=== PATIENT | male | born 1960 | race Caucasian/White ===

== ENCOUNTER 2018-10-21 17:10 | Emergency (ER) | payer BC ==
--- NOTE | 2018-10-21 18:02 | EDM.PDOC ---
<Constance Rolon - Last Filed: 10/21/18 18:07> ED HPI GENERAL MEDICAL PROBLEM - General Chief Complaint: Lower Extremity Injury/Pain Stated Complaint: L LEG POSS BLOOD CLOT Time Seen by Provider: 10/21/18 17:34 Source of Information: Reports: Patient, RN Notes Reviewed History Limitations: Reports: No Limitations - History of Present Illness INITIAL COMMENTS - FREE TEXT/NARRATIVE: Farhan is a 58 year old male who presents with left lower extremity swelling, erythema and pain for the last 5 days. Patient states he injured his calf muscle about nine days ago and had some bruising to the posterior calf. He then left for vacation to [place], [place] via airplane 7 days ago and returned to [place] last evening. He states that he experienced tightness and discomfort to his posterior lower extremity and then developed erythema to the anterior left lower extremity and pitting edema that was much worse than his baseline edema. Patient states he has been taking 800mg ibuprofen twice a day for the discomfort. He was walking substantially on his vacation to [place], and noticed the swelling would worsen through the day, and would improve with elevation and ice in the evening. He was seen at the walk in clinic and was told he would need US for DVT evaluation. Patient denies any SOB. Treatments OSD CLERK: Reports: NSAIDS Left Leg Pain Score (Numeric/FACES): 0 - Related Data Allergies Allergy/AdvReac Type Severity Reaction Status Date / Time No Known Allergies Allergy Verified 10/21/18 17:23 Home Meds: Home Meds Ibuprofen [Ibu] 800 mg PO ASDIRECTED PRN 10/21/18 [History] amLODIPine [Norvasc] 2.5 mg PO DAILY 10/21/18 [History] cephALEXin [Cephalexin] 500 mg PO TID #21 capsule 10/21/18 [Rx] guaiFENesin [Mucinex] 1,200 mg PO BID 10/21/18 [History] Past Medical History HEENT History: Reports: Impaired Vision Cardiovascular History: Reports: Hypertension Other Cardiovascular History: Had a calcium study and stress test about 1 year ago and were normal Musculoskeletal History: Reports: Back Pain, Chronic - Infectious Disease History Infectious Disease History: Reports: Chicken Pox, Measles - Past Surgical History HEENT Surgical History: Reports: Oral Surgery, Tonsillectomy Social & Family History - Family History Family Medical History: Noncontributory Cardiac: Reports: CAD Endocrine/Metabolic: Reports: Diabetes, type II Oncologic: Reports: Prostate - Tobacco Use Smoking Status *Q: Never Smoker - Caffeine Use Caffeine Use: Reports: Coffee - Recreational Drug Use Recreational Drug Use: No Review of Systems - Review of Systems Review Of Systems: See Below Constitutional: Reports: No Symptoms Eyes: Reports: No Symptoms Ears: Reports: No Symptoms Nose: Reports: No Symptoms Mouth/Throat: Reports: No Symptoms Respiratory: Reports: No Symptoms. Denies: Shortness of Breath, Pleuritic Chest Pain, Cough Cardiovascular: Reports: Edema (left lower extremity). Denies: Chest Pain, Palpitations GI/Abdominal: Reports: No Symptoms Genitourinary: Reports: No Symptoms Skin: Reports: Bruising (posterior left lower extremity), Erythema (anterior left lower extremity) Neurological: Reports: No Symptoms Psychiatric: Reports: No Symptoms ED EXAM, GENERAL - Physical Exam Exam: See Below Exam Limited By: No Limitations General Appearance: Alert, WD/WN, No Apparent Distress Eye Exam: Bilateral Eye: EOMI, PERRL Head: Atraumatic, Normocephalic Respiratory/Chest: No Respiratory Distress Cardiovascular: Normal Peripheral Pulses Peripheral Pulses: 0: Posterior Tibial (L) (unable to appreciate due to edema), 3+: Popliteal (L), Popliteal (R), Dorsalis Pedis (L), Dorsalis Pedis (R) Extremities: Normal Capillary Refill, Increased Warmth (anterior L LE), Redness (anterior L LE), Other (edema to the level of the knee, pitting +2) Neurological: Alert, Oriented, Normal Cognition Psychiatric: Normal Affect, Normal Mood Course - Vital Signs Last Recorded V/S: Last Vital Signs Temp 97.6 F 10/21/18 17:28 Pulse 63 10/21/18 20:02 Resp 16 10/21/18 20:02 BP 140/74 10/21/18 20:02 Pulse Ox 98 10/21/18 20:02 - Orders/Labs/Meds Labs: Laboratory Tests 10/21/18 10/21/18 Range/Units 18:15 18:15 WBC 6.95 (4.23-9.07) K/mm3 RBC 4.49 L (4.63-6.08) M/mm3 Hgb 13.6 L (13.7-17.5) gm/L Hct 41.1 (40.1-51.0) % MCV 91.5 (79.0-92.2) fl MCH 30.3 (25.7-32.2) pg MCHC 33.1 (32.2-35.5) g/dl RDW Std Deviation 47.0 H (35.1-43.9) fL Plt Count 228 (163-337) K/mm3 MPV 10.1 (9.4-12.3) fl Neutrophils % (Manual) 68 H (40-60) % Band Neutrophils % 0 (0-10) % Lymphocytes % (Manual) 22 (20-40) % Atypical Lymphs % 0 % Monocytes % (Manual) 7 (2-10) % Eosinophils % (Manual) 2 (0.8-7.0) % Basophils % (Manual) 1 (0.2-1.2) Platelet Estimate Adequate Plt Morphology Comment Normal RBC Morph Comment Normal C-Reactive Protein 1.1 H* (<1.0) mg/dL Departure - Departure Disposition: Home, Self-Care 01 Clinical Impression: Cellulitis, Venous stasis of lower extremity, Edema - Discharge Information Prescriptions: cephALEXin [Cephalexin] 500 mg PO TID #21 capsule Instructions: Cellulitis, Adult Referrals: Rich Louise Jr, MD [Primary Care Provider] - Forms: ED Department Discharge Additional Instructions: Take the cephalexin as prescribed. 1 cap PO tid x 7 days. Elevate the leg as much as you able to. Elevate above the level of the heart as much as possible. Recommend compression stockings. The full leg ones are best. Follow-up with PCP in 7-10 days for a recheck of the swelling and erythema. Please return to the ER should your symptoms change or worsen. <Any Harper - Last Filed: 10/21/18 23:20> ED HPI GENERAL MEDICAL PROBLEM - History of Present Illness INITIAL COMMENTS - FREE TEXT/NARRATIVE: I have seen the patient and agree with the HPI as documented by JENNY Sol. Patient denies any chest pain or shortness of breath. Reports pain to the left leg only with palpation. Review of Systems - Review of Systems Review Of Systems: See Below Constitutional: Denies: Chills, Fever ED EXAM, GENERAL - Physical Exam Respiratory/Chest: No Respiratory Distress, Lungs Clear, Normal Breath Sounds Cardiovascular: Normal Peripheral Pulses, Regular Rate, Rhythm, No Murmur Extremities: No: Bronson's Sign Skin Exam: Warm, Dry, Normal Color, Erythema (Left lower leg anterior with associated increased warmth) Course - Radiology Interpretation Free Text/Narrative:: Left lower extremity deep venous ultrasound: Duplex and color flow imaging was obtained of the left common femoral, proximal greater saphenous, superficial femoral, popliteal, posterior tibial and peroneal veins. Right common femoral vein was also evaluated. Findings: Normal phasic flow, augmentation and compression is seen. Subcutaneous edema is noted within the lower extremity. Impression: 1. Subcutaneous edema with left lower extremity. 2. No evidence of deep venous thrombosis within left lower extremity or within the right common femoral vein. - Re-Assessments/Exams Free Text/Narrative Re-Assessment/Exam: 10/21/18 19:49 I have seen the patient and agree with the HPI, ROS and PE as documented by JENNY Sol. No sign of DVT. Suspect the edema is from his previous vein stripping and increased walking as of late. Concern erythema and increased warmth is early cellulitis. Will treat with cephalexin. No history of MRSA or diabetes. Discharge instructions as documented. Departure - Departure Time of Disposition: 19:49 Condition: Fair - Discharge Information *PRESCRIPTION DRUG MONITORING PROGRAM REVIEWED*: No *COPY OF PRESCRIPTION DRUG MONITORING REPORT IN PATIENT GALO: No
--- NOTE | 2018-10-21 19:15 | US ---
Left lower extremity deep venous ultrasound: Duplex and color flow imaging was obtained of the left common femoral, proximal greater saphenous, superficial femoral, popliteal, posterior tibial and peroneal veins. Right common femoral vein was also evaluated. Findings: Normal phasic flow, augmentation and compression is seen. Subcutaneous edema is noted within the lower extremity. Impression: 1. Subcutaneous edema with left lower extremity. 2. No evidence of deep venous thrombosis within left lower extremity or within the right common femoral vein. Diagnostic code #2
== END 2018-10-21 20:02 | disposition home or self-care (01) ==
LOC: JD.ED 17:10
DX: I87.8 Other specified disorders of veins (principal); I10 Essential (primary) hypertension; L03.116 Cellulitis of left lower limb; Z79.899 Other long term (current) drug therapy; R60.0 Localized edema
CPT/HCPCS: 36415; 85007; 85027; 86140; 93971-26-LT; 93971-LT; 99283; 99284-25

== ENCOUNTER 2019-06-29 08:54 | Day surgery (SDC) | payer BC ==
[~2019-06-29 08:54] MED LIST: Lactated Ringers 1,000 ML IV SCH; Lidocaine 1%/Sod Bicarbonate in NS 8.4% 1 ML Syringe IDERM PRN; Sodium Chloride 0.9% 10 ML Syringe FLUSH PRN
[2019-06-29] MEDS ORDERED: Lidocaine 1% 30 ML SDV ONE (09:04)
[2019-06-29] MEDS ORDERED: Propofol 200 MG/20 ML SDV ONE (09:04)
[2019-06-29] MEDS ORDERED: Midazolam 1 MG/ML 2 ML SDV ONE (09:05)
[2019-06-29] MEDS ORDERED: fentaNYL 250 MCG/5 ML SDV ONE (09:06)
[2019-06-29] MEDS ORDERED: Rocuronium 50 MG/5 ML Vial ONE (09:06)
[2019-06-29] MEDS ORDERED: Lidocaine 1% 4 ML ONE (09:07)
[2019-06-29] MEDS ORDERED: Ondansetron 4 MG/2 ML SDV ONE (09:08)
[2019-06-29] MEDS ORDERED: Dexamethasone 4 MG/ML SDV ONE (09:08)
--- NOTE | 2019-06-29 09:18 | PCM.PREANE ---
Preanesthetic Assessment - Procedure Proposed Procedure: laparascopic right inguinal hernia repair with mesh - Anesthesia/Transfusion/Family Hx Anesthesia History: Prior Anesthesia Without Reaction Family History of Anesthesia Reaction: No Transfusion History: No Prior Transfusion(s) - Review of Systems General: No Symptoms Pulmonary: Cough (daily due to mucous buildup) Cardiovascular: No Symptoms Gastrointestinal: No Symptoms Neurological: No Symptoms Other: Reports: None - Physical Assessment NPO Status Date: 06/28/19 NPO Status Time: 23:59 Vital Signs: 99.5 16 92% 67 136/80 Height: 5 ft 10 in Weight: 128 kg ASA Class: 2 Mental Status: Alert & Oriented x3 Airway Class: Mallampati = 2 Dentition: Reports: Normal Dentition Thyro-Mental Finger Breadths: 3 Mouth Opening Finger Breadths: 3 ROM/Head Extension: Full Lungs: Clear to Auscultation, Normal Respiratory Effort Cardiovascular: Regular Rate, Regular Rhythm - Allergies Allergies/Adverse Reactions: Allergies Allergy/AdvReac Type Severity Reaction Status Date / Time No Known Allergies Allergy Verified 06/28/19 17:21 - Blood Blood Available: Yes - Acknowledgements Anesthesia Type Planned: General Anesthesia Pt an Appropriate Candidate for the Planned Anesthesia: Yes Alternatives and Risks of Anesthesia Discussed w Pt/Guardian: Yes Pt/Guardian Understands and Agrees with Anesthesia Plan: Yes PreAnesthesia Questionnaire HEENT History: Reports: Allergic Rhinitis, Impaired Vision Cardiovascular History: Reports: Hypertension Other Cardiovascular History: Had a calcium study and stress test about 1 year ago and were normal, chest pain, edema Respiratory History: Reports: None Gastrointestinal History: Reports: Other (See Below) Other Gastrointestinal History: reflux- seldom Genitourinary History: Reports: None UNIVERSITY MANAGER History: Reports: None Musculoskeletal History: Reports: Back Pain, Chronic Neurological History: Reports: None Psychiatric History: Reports: None Endocrine/Metabolic History: Reports: Obesity/BMI 30+ Hematologic History: Reports: None Immunologic History: Reports: None Oncologic (Cancer) History: Reports: None Dermatologic History: Reports: Eczema, Other (See Below) Other Dermatologic History: contact dermatitis - Infectious Disease History Infectious Disease History: Reports: Chicken Pox, Measles - Past Surgical History Head Surgeries/Procedures: Reports: None HEENT Surgical History: Reports: Naso-Sinus Surgery, Oral Surgery, Tonsillectomy Cardiovascular Surgical History: Reports: None Respiratory Surgical History: Reports: None GI Surgical History: Reports: Colonoscopy Female Surgical History: Reports: None Male Surgical History: Reports: None Other Male Surgeries/Procedures: veins stripped left leg- 9 years ago Endocrine Surgical History: Reports: None Neurological Surgical History: Reports: None Musculoskeletal Surgical History: Reports: Other (See Below) Other Musculoskeletal Surgeries/Procedures:: thumb amputation Oncologic Surgical History: Reports: None - SUBSTANCE USE Smoking Status *Q: Never Smoker Tobacco Use Within Last Twelve Months: Smokeless Tobacco (used 12-15 years but quit years ago) Second Hand Smoke Exposure: No Days Per Week of Alcohol Use: 2 Number of Drinks Per Day: 2 Total Drinks Per Week: 4 Recreational Drug Use History: No - HOME MEDS Home Medications: Home Meds Calcium Carb/Magnesium Cmb #10 [David-Mag] 6 tab PO DAILY 06/28/19 [History] Cetirizine HCl [Zyrtec] 10 mg PO DAILY 06/28/19 [History] Ibuprofen 200 - 600 mg PO Q4H PRN 06/28/19 [History] Mometasone Furoate [Nasonex] 1 dose BRIAN BID PRN 06/28/19 [History] Multivitamin [Daily Multiple Vitamin] 1 tab PO DAILY 06/28/19 [History] Tadalafil 20 mg PO ASDIRECTED PRN 06/28/19 [History] Triamcinolone Acetonide [Triamcinolone Acetonide 0.1% Crm] 1 dose TOP BID [History] amLODIPine Besylate [Amlodipine Besylate] 5 mg PO DAILY 06/28/19 [History] guaiFENesin [Mucinex] 600 mg PO BID PRN 06/28/19 [History] - CURRENT (IN HOUSE) MEDS Current Meds: Current Medications Lactated Ringer's (Ringers, Lactated) 1,000 mls @ 125 mls/hr IV ASDIRECTED KEARA Stop: 06/29/19 23:00 Influenza Virus Vaccine (Fluzone Quad Syringe) 60 mcg IM .ONCE ONE Stop: 06/29/19 10:01 Lidocaine/Sodium Bicarbonate (Buffered Lidocaine 1% In Ns 8.4%) 0.25 ml IDERM ONETIME PRN PRN Reason: Prior to IV Start Stop: 06/29/19 18:00 Sodium Chloride (Saline Flush) 10 ml FLUSH ASDIRECTED PRN PRN Reason: Keep Vein Open Stop: 10/07/19 18:00 Discontinued Medications Dexamethasone (Dexamethasone) Confirm Administered Dose 4 mg .ROUTE .STK-MED ONE Stop: 06/29/19 09:09 Fentanyl (Sublimaze) Confirm Administered Dose 250 mcg .ROUTE .STK-MED ONE Stop: 06/29/19 09:07 Lidocaine HCl (Xylocaine-Mpf 1%) Confirm Administered Dose 4 mls @ as directed .ROUTE .STK-MED ONE Stop: 06/29/19 09:08 Influenza Virus Vaccine (Pharmacy To Dose - Influenza Vaccine) 1 each IM ONETIME KEARA Lidocaine HCl (Xylocaine-Mpf 1%) Confirm Administered Dose 30 ml .ROUTE .STK- MED ONE Stop: 06/29/19 09:05 Midazolam HCl (Versed 1 Mg/Ml) Confirm Administered Dose 2 mg .ROUTE .STK-MED ONE Stop: 06/29/19 09:06 Ondansetron HCl (Zofran) Confirm Administered Dose 4 mg .ROUTE .STK-MED ONE Stop: 06/29/19 09:09 Propofol (Diprivan 20 Ml) Confirm Administered Dose 200 mg .ROUTE .STK-MED ONE Stop: 06/29/19 09:05 Rocuronium Winn (Zemuron) Confirm Administered Dose 50 mg .ROUTE .STK-MED ONE Stop: 06/29/19 09:07
[2019-06-29] MEDS ORDERED: FLU Vacc QS2019-20(6MOS+)/PF 60 MCG/0.5 ML SYRINGE IM ONE ×2 (10:00→14:46)
[2019-06-29] MEDS ORDERED: Ondansetron 4 MG/2 ML SDV IVPUSH PRN (14:16)
[2019-06-29] MEDS ORDERED: diphenhydrAMINE 50 MG/ML SDV IVPUSH PRN (14:16)
[2019-06-29] MEDS ORDERED: fentaNYL 100 MCG/2 ML SDV IVPUSH PRN (14:16)
--- NOTE | 2019-06-29 14:21 | PCM.POSTAN ---
POST ANESTHESIA ASSESSMENT - MENTAL STATUS Mental Status: Alert - VITAL SIGNS Vital Signs: Last Vital Signs bp 145/85 sats 92 2 LNC pulse 95 rr 15 temp 98.6 Temp 37.5 C 06/29/19 09:00 Pulse 67 06/29/19 09:00 Resp 16 06/29/19 09:00 BP 136/80 06/29/19 09:00 Pulse Ox 92 L 06/29/19 09:00 - RESPIRATORY Respiratory Status: Respiratory Rate WNL, Airway Patent, O2 Saturation Stable, Supplemental Oxygen - CARDIOVASCULAR CV Status: Pulse Rate WNL, Blood Pressure Stable - GASTROINTESTINAL GI Status: No Symptoms - POST OP HYDRATION Hydration Status: Adequate & Stable
--- NOTE | 2019-06-29 14:49 | PCM48HPAN ---
Post Anesthesia Note - EVALUATION WITHIN 48HRS OF ANESTHETIC Vital Signs in Normal Range: Yes Patient Participated in Evaluation: Yes Respiratory Function Stable: Yes Airway Patent: Yes Cardiovascular Function Stable: Yes Hydration Status Stable: Yes Pain Control Satisfactory: Yes Nausea and Vomiting Control Satisfactory: Yes Mental Status Recovered: Yes Vital Signs: Last Vital Signs Temp 37.0 C 06/29/19 14:45 Pulse 81 06/29/19 14:45 Resp 15 06/29/19 14:45 BP 136/88 06/29/19 14:45 Pulse Ox 94 L 06/29/19 14:47
--- NOTE | 2019-06-29 15:56 | OR ---
DATE OF OPERATION: 06/29/2019 SURGEON: Amanuel Hamm MD PREOPERATIVE DIAGNOSIS: Right inguinal hernia. POSTOPERATIVE DIAGNOSIS: Right inguinal hernia. OPERATION PERFORMED: Laparoscopic totally extraperitoneal right inguinal hernia repair with mesh. FINDINGS: Direct and indirect right inguinal hernias. ANESTHESIA: General endotracheal. ESTIMATED BLOOD LOSS: 25 mL. FLUIDS: 2500. URINE OUTPUT: 400. INDICATIONS AND CONSENT: The patient is a 59-year-old male who developed a symptomatic right inguinal hernia. The patient was evaluated in my office, and we offered him a right inguinal hernia repair with mesh. I discussed in detail options including open, watchful waiting as well as operative repair laparoscopically. I recommended laparoscopic approach. The patient agreed and understood the risks, benefits, and alternatives and signed informed consent to proceed with the procedure. DESCRIPTION OF PROCEDURE: The patient was brought into the operating room, placed on the operating room table in supine position. Following induction of general endotracheal anesthesia, preop antibiotics were given, which is Ancef 3 g. Then, the abdomen was clipped, and the patient's arms were tucked bilaterally. SCDs placed, and the abdomen was then prepped and draped in usual sterile fashion. A formal time-out was performed prior to the start of the procedure. We began the procedure by creating a small infraumbilical incision slightly to the right side. Subcutaneous tissue was dissected bluntly, and then anterior fascia was visualized. Incision was made to anterior fascia. Muscles were retracted to the right exposing the posterior fascia. A balloon dissector was placed, which was a 10 to 12 mm balloon. A 10/30 laparoscope was placed, and balloon dissector was insufflated under direct visualization, and once this was done, the balloon was deflated and removed. The trocar balloon was insufflated, and then a 10/30 scope was placed. We visualized the pubic tubercle, and there was little bit of bleeding which was self limited. Unfortunately, the distal portion of the right epigastric artery and vein went down together with the peritoneum and transversalis fascia. We proceeded with dissection. Minor dissection was performed at the pubic tubercle to expose it clearly. There was a small direct inguinal hernia that was taken down. Then, the lateral dissection was performed, isolating the right indirect hernia that was large. Then because of the difficulty with visualization due to the right epigastric vein and artery being down, decision was made to ligate this at the point where it dives down into the flap. Both vein and artery were clipped with 4 clips and transected with scissors such that 2 clips remained at the abdominal wall and 2 clips down on the flap. This allowed us to have better visualization and to continue with the lateral dissection, which was continued, making sure not to enter the peritoneal cavity. Once this was done, we turned our attention to reduction of the indirect component of the right inguinal hernia. There was a large amount of preperitoneal fat in the hernia that was reduced. His hernia sac was moderately large, was also reduced completely. We obtained about 5 cm distance from the hernia posteriorly. Then, an anatomic 10.3 x 15.7 cm polypropylene lightweight mesh was brought into the field. This was placed into the abdominal cavity and lined up appropriately into the right inguinal area such that there was about 4 cm overlap posteriorly and 6 cm overlap superiorly about the hernia defects. The mesh was fixed in 3 places, 1 just above the pubic tubercle, another laterally, and another superiorly so that mesh did not move. AbsorbaTack absorbable fixation device was used for this docking. Once this was done, the mesh was reinspected and found to be lying appropriately, covering the defect well. The preperitoneal space was desufflated, and the anterior fascia at the infraumbilical position was closed with 0 Vicryl stitches in a figure-of- eight fashion, and all incisions were then closed at the skin level with 4-0 Monocryl stitches. The patient tolerated the procedure well. At the end of the procedure, all instruments, sharps, and sponges were counted and found to be correct x2. The patient was awoken from anesthesia, extubated, and taken to the PACU for further recovery. The plan is for the patient to go home today. The patient will have weight restrictions of lifting no more than 20 pounds for 4 weeks. The patient will come to see me in clinic in 2 weeks. [place] /[id number] LUIS MANUEL
== END 2019-06-29 19:05 | disposition home or self-care (01) ==
LOC: JD.SDS 08:54 → JD.OB 17:20 → JD.SDS 19:05
PROVIDERS: ATTEND Surgery
DX: K40.90 Unilateral inguinal hernia, without obstruction or gangrene, not specified as recurrent (principal); K21.9 Gastro-esophageal reflux disease without esophagitis; E66.9 Obesity, unspecified; Z91.048 Other nonmedicinal substance allergy status; Z87.891 Personal history of nicotine dependence; Z68.41 Body mass index [BMI] 40.0-44.9, adult
CPT/HCPCS: 36415; 49650; 86850; 86900; 86901; 90471; 90686; 94761; J1100; J2001; J2250; J2405; J2704; J3010; J7120; 00840; G0008

== ENCOUNTER 2022-04-08 17:09 | Emergency (ER) | payer BC ==
[2022-04-08] MEDS ORDERED: Diphtheria,Pertussis(Acell),Tetanus Vaccine 0.5 ML Syringe IM ONE (19:08)
== END 2022-04-08 19:40 | disposition home or self-care (01) ==
LOC: JD.ED 17:09
DX: S81.812A Laceration without foreign body, left lower leg, initial encounter (principal); I10 Essential (primary) hypertension; E66.9 Obesity, unspecified; Z68.38 Body mass index [BMI] 38.0-38.9, adult; Z79.899 Other long term (current) drug therapy; Z23 Encounter for immunization; W26.8XXA Contact with other sharp object(s), not elsewhere classified, initial encounter
CPT/HCPCS: 12002; 12014; 90471; 90715; 99282; 99282-25

== ENCOUNTER 2024-08-10 10:57 | Day surgery (SDC) | payer MEDICARE, OTHER ==
[~2024-08-10 10:57] MED LIST changes: -Lactated Ringers 1,000 ML IV SCH; -Lidocaine 1%/Sod Bicarbonate in NS 8.4% 1 ML Syringe IDERM PRN; +Sodium Chloride 0.9% 10 ML Syringe FLUSH SCH
[2024-08-10] MEDS ORDERED: Midazolam 1 MG/ML 2 ML SDV ONE (11:01)
[2024-08-10] MEDS ORDERED: fentaNYL 100 MCG/2 ML SDV ONE (11:01)
[2024-08-10] MEDS ORDERED: Propofol 200 MG/20 ML SDV ONE ×2 (11:01→13:08)
[2024-08-10] MEDS ORDERED: ceFAZolin 2 GM Vial ONE ×2 (11:02→12:51)
[2024-08-10] MEDS ORDERED: Dexamethasone 4 MG/ML 5 ML MDV ONE (11:02)
[2024-08-10] MEDS ORDERED: Ondansetron 4 MG/2 ML SDV ONE (11:02)
[2024-08-10] MEDS ORDERED: Lidocaine 1% 5 ML VIAL ONE (11:02)
[2024-08-10] MEDS ORDERED: ePHEDrine 50 MG/ML SDV ONE (11:02)
[2024-08-10] MEDS ORDERED: Ketorolac 30 MG/ML SDV ONE (11:02)
[2024-08-10] MEDS ORDERED: Ropivacaine 0.5% 5 MG/ML 30 ML SDV ONE (11:05)
[2024-08-10] MEDS: Pregabalin 25 MG Cap PO ONE (11:26)
[2024-08-10] MEDS: oxyCODONE ER 10 MG TAB.ER PO ONE (11:26)
[2024-08-10] MEDS: Acetaminophen 325 MG Tab PO ONE (11:27)
[2024-08-10] MEDS: Lactated Ringers 1,000 ML IV SCH (11:32)
[2024-08-10] MEDS ORDERED: Ondansetron 4 MG/2 ML SDV IVPUSH PRN (13:02)
[2024-08-10] MEDS ORDERED: HYDROmorphone 0.5 MG/0.5 ML Syringe IVPUSH PRN (13:02)
[2024-08-10] MEDS ORDERED: fentaNYL 100 MCG/2 ML SDV IVPUSH PRN (13:02)
[2024-08-10] MEDS ORDERED: Lactated Ringers 1,000 ML ONE (13:08)
[2024-08-10] MEDS: Morphine 8 MG, EPINEPHrine 0.3 MG, Cefuroxime 750 MG, Ketorolac 30 MG, Sodium Chloride ... PRN (15:29)
[2024-08-10] MEDS: Tranexamic Acid 1,000 MG/10 ML Vial ONE (15:29)
[2024-08-10] MEDS: Vancomycin 1 GM SDV ONE (15:30)
[2024-08-10] MEDS: oxyCODONE 5 MG Tab PO PRN (16:30)
== END 2024-08-10 16:55 | disposition home or self-care (01) ==
LOC: JD.SDS 10:57
PROVIDERS: ATTEND Orthopaedic Surgery
DX: M17.12 Unilateral primary osteoarthritis, left knee (principal); K21.9 Gastro-esophageal reflux disease without esophagitis; E66.9 Obesity, unspecified; Z87.891 Personal history of nicotine dependence; Z68.41 Body mass index [BMI] 40.0-44.9, adult
CPT/HCPCS: 0055T; 27447; 64447; 73560; 97116; 97161; A9270; C1776; J0171; J0690; J0697; J1100; J1885; J2250; J2272; J2405; J2704; J2795; J3010; J7120; J3490